=== PATIENT | male | born 1965 | race Caucasian/White ===

== ENCOUNTER → 2024-10-27 16:14 | Outpatient (REF) | payer BC, SELFPAY | LOC: RAD 16:14 | PROVIDERS: ATTENDING PHYSICIAN Surgery | DX: C19 Malignant neoplasm of rectosigmoid junction (principal) | CPT/HCPCS: 71260; 74177; Q9967 ==

== ENCOUNTER → 2024-10-31 11:53 | Outpatient (REF) | payer BC, SELFPAY | LOC: MRI 3T 11:53 | PROVIDERS: ATTENDING PHYSICIAN Surgery | DX: C19 Malignant neoplasm of rectosigmoid junction (principal) | CPT/HCPCS: 72197; A9575 ==

== ENCOUNTER 2024-11-15 06:10 | Day surgery (SDC) | payer BC, SELFPAY ==
--- NOTE | 2024-11-10 09:08 | PTCARENOTE ---
Abnormal K+ 5.5 collected 10/30/24 [address] to Mireya at Dr Hardwick's office.
--- NOTE | 2024-11-10 16:38 | PTCARENOTE ---
Abnormal K+: 5.5 collected on 10/30/24. Dr. Patrick notified, order for repeat Potassium at bedside received.
[2024-11-15] VITALS (8 sets, daily range): BP systolic 84–134; BP diastolic 63–94; BMI 29.3
[2024-11-15] MEDS: TYLENOL 1000 MG PO (11:08)
[2024-11-15] MEDS: NORMOSOL-R/PLASMALYTE-A 1000 IV (11:09)
[2024-11-15 11:25] LABS: Potassium 4.8 mmol/L (3.5-5.1)
== END 2024-11-15 16:15 | disposition home or self-care (01) ==
LOC: SDS 06:10
PROVIDERS: Anesthesiology; ATTENDING PHYSICIAN Surgery
DX: C19 Malignant neoplasm of rectosigmoid junction (principal); C20 Malignant neoplasm of rectum; K56.609 Unspecified intestinal obstruction, unspecified as to partial versus complete obstruction
CPT/HCPCS: 36561; 45380; 71045; 76000; 84132; 88305; 88342; C1788

== ENCOUNTER → 2024-11-20 08:08 | Outpatient (REF) | payer BC, SELFPAY | LOC: PAVMRI 08:08 | PROVIDERS: ATTENDING PHYSICIAN Internal Medicine Hematology & Oncology; FAMILY PHYSICIAN Family Medicine | DX: C19 Malignant neoplasm of rectosigmoid junction (principal) | CPT/HCPCS: 72197; A9575 ==

== ENCOUNTER → 2024-11-24 08:33 | Outpatient (REF) | payer BC, SELFPAY ==
[2024-11-24 09:05] LABS: Glucose 87 mg/dl (70-99)
== END ==
LOC: PET 08:33
PROVIDERS: ATTENDING PHYSICIAN Internal Medicine Hematology & Oncology
DX: C19 Malignant neoplasm of rectosigmoid junction (principal)
CPT/HCPCS: 36415; 82947